=== PATIENT | female | born 1985 | race American Indian/Alaskan Native ===

== ENCOUNTER 2017-11-03 14:13 | Outpatient (CLI) | payer MEDICAID ==
--- NOTE | 2017-11-03 15:14 | XRay Report ---
XRAY RIGHT HAND THREE VIEWS: 11/03/17 14:13:00 CLINICAL: Hand pain. FINDINGS: Normal bones, joints and soft tissues. No fracture or dislocation. IMPRESSION: Normal.
== END 2017-11-03 14:14 | disposition home or self-care (01) ==
LOC: SPVIMAG 14:13
PROVIDERS: ATTEND Orthopaedic Surgery Sports Medicine
DX: M79.641 Pain in right hand (principal)